=== PATIENT | female | born 1950 | race Caucasian/White ===

== ENCOUNTER → 2021-05-23 14:55 | Outpatient (BNVA) | payer OTHER, SELFPAY | PROVIDERS: PCP Physician Assistant; Visit Provider Internal Medicine ==

== ENCOUNTER → 2021-07-04 13:05 | Outpatient (BNVA) | payer OTHER, SELFPAY | PROVIDERS: PCP Physician Assistant; Visit Provider Internal Medicine ==

== ENCOUNTER 2021-08-09 14:56 | Outpatient (REF) | payer OTHER, SELFPAY ==
[2021-08-10 14:48] LABS: H Pylori Breath Test Positive (Negative)
== END 2021-08-09 14:57 | disposition home or self-care (01) ==
LOC: HO.LAB 14:56
PROVIDERS: Visit Provider Internal Medicine
DX: K29.70 Gastritis, unspecified, without bleeding (principal); B96.81 Helicobacter pylori [H. pylori] as the cause of diseases classified elsewhere; R19.7 Diarrhea, unspecified
CPT/HCPCS: 36415; 83013

== ENCOUNTER 2021-11-20 11:03 | Outpatient (REF) | payer MEDICARE, SELFPAY ==
--- NOTE | ~2021-11-20 | XR_ITS ---
EXAMINATION: XR KNEE, RIGHT CLINICAL INFORMATION: Right knee pain COMPARISON: None TECHNIQUE: Four views of the right knee. FINDINGS: No fracture, dislocation, destructive process, or suprapatellar effusion. Hoffa's fat pad appears normal. There are mild tricompartment osteoarthritis with mild narrowing medial knee joint compartment and spurring from the femoral condyles, patella, and tibial plateau. No erosive change. There is some faint fine chondrocalcinosis medial meniscus. Axial view patella shows no lateralization or tilting. There is spurring at the quadriceps insertion patella and origin patellar tendon. There is spurring at the proximal medial femoral condyle which may related to remote injury proximal medial collateral ligament. XR/XR knee RT 4V IMPRESSION: -Mild tricompartment osteoarthritis. No effusion. -Spurring quadriceps insertion patella and origin patellar tendon. -Mild spurring proximal medial femoral condyle, possibly related to remote proximal MCL injury.
--- NOTE | ~2021-11-20 | XR_ITS ---
EXAMINATION: XR HIP, RIGHT CLINICAL INFORMATION: Right hip pain COMPARISON: None TECHNIQUE: Two views of the right hip. FINDINGS: There is borderline narrowing superior medial hip joint. No subchondral sclerosis or erosive change or chondrocalcinosis. No fracture or dislocation or destructive process. There are degenerative changes lower lumbar spine with vertebral spurring L4 and L5. Mild osteitis pubis present. There is mild whiskering from the lateral right ilium and mild spurring from the caudal aspect right hip greater trochanter. XR/XR hip RT min 2V IMPRESSION: -Borderline narrowing superior medial hip joint. No erosive change. -Mild spurring caudal aspect greater trochanter. -Degenerative changes lower lumbar spine. -Mild osteitis pubis.
== END 2021-11-20 11:04 | disposition home or self-care (01) ==
LOC: HO.XRAY 11:03
PROVIDERS: PCP Internal Medicine; Visit Provider Nurse Practitioner Family
DX: M25.551 Pain in right hip (principal); M25.561 Pain in right knee; G89.29 Other chronic pain; Z98.890 Other specified postprocedural states
CPT/HCPCS: 73502; 73564

== ENCOUNTER 2022-06-20 06:22 | Outpatient (REF) | payer MEDICARE, SELFPAY ==
--- NOTE | ~2022-06-20 | XR_ITS ---
EXAMINATION: XR SHOULDER, LEFT CLINICAL INFORMATION: Pain left shoulder COMPARISON: None TECHNIQUE: AP external rotation, Grashey, scapular Y, and axillary views of the left shoulder. FINDINGS: There is loss of glenohumeral and AC joint space with periarticular spurring. There is no visible acute fracture, dislocation or subluxation seen. There is diffuse osteopenia with several lucencies seen in the proximal humerus.. XR/XR shoulder LT min 2V IMPRESSION: Degenerative arthritic changes left shoulder joint. No visible acute fracture or dislocation seen. There is mild osteopenia with several lucencies seen in the proximal humerus.
== END 2022-06-20 06:23 ==
LOC: HO.HOSX 06:22
PROVIDERS: Visit Provider Physician Assistant
DX: M75.32 Calcific tendinitis of left shoulder (principal); M19.012 Primary osteoarthritis, left shoulder
CPT/HCPCS: 20610; 73030; 99202; J1020

== ENCOUNTER 2023-02-14 11:05 | Outpatient (REF) | payer OTHER, MEDICAID, SELFPAY ==
[2023-02-14 14:20] LABS: Estimated Average Glucose 140 mg/dL; Hemoglobin A1c % 6.5 %
[2023-02-14 14:34] LABS: Alanine Aminotransferase 43 U/L (0-31); Albumin Level 4.2 g/dL (3.5-5.0); Alkaline Phosphatase 96 U/L (39-117); Anion Gap 14 (12-20); Aspartate Amino Transferase 37 U/L (5-31); Bilirubin Total 0.2 mg/dL (0.0-1.0); Blood Urea Nitrogen 17 mg/dL (9-16); Calcium 10.1 mg/dL (8.4-10.2); Carbon Dioxide 26 mmol/L (22-29); Chloride 104 mmol/L (96-108); Estimated Glomerular Filt Rate > 60; Glucose Random 141 mg/dL (60-115); Potassium 4.7 mmol/L (3.3-5.1); Sodium 139 mmol/L (135-145); Total Protein 7.8 g/dL (6.5-8.0)
== END 2023-02-14 11:06 | disposition home or self-care (01) ==
LOC: HO.HHCL 11:05
PROVIDERS: Visit Provider Registered Nurse
DX: E11.9 Type 2 diabetes mellitus without complications (principal)
CPT/HCPCS: 36415; 80053; 83036

== ENCOUNTER 2023-02-14 12:45 | Emergency (ER) | payer OTHER, SELFPAY ==
--- NOTE | ~2023-02-14 | XR_ITS ---
EXAMINATION: XR CHEST CLINICAL INFORMATION: Chest pain. COMPARISON: None available. TECHNIQUE: 2 views of the chest were obtained. FINDINGS: No significant abnormality is noted involving the heart, lungs, mediastinum, bony thorax or soft tissues. Degenerative changes of the left shoulder. XR/XR chest 2V IMPRESSION: Unremarkable examination.
--- NOTE | 2023-02-14 12:47 | ECG_ITS ---
Test Reason : chest pain Blood Pressure : / mmHG Vent. Rate : 072 BPM Atrial Rate : 072 BPM P-R Int : 176 ms QRS Dur : 072 ms QT Int : 374 ms P-R-T Axes : 048 -05 045 degrees QTc Int : 409 ms Normal sinus rhythm Minimal voltage criteria for LVH, may be normal variant ( R in aVL ) Borderline ECG No previous ECGs available Referred By: Generic ED Physician Electronically Signed By:Oliver Benton
[2023-02-14 13:03] LABS: MANUAL DIFF FLAG NO
[2023-02-14 13:04] VITALS: BP 157/79; PULSE 80; RESP 18; TEMP 36.1; O2SAT 97; BMI 31.5
--- NOTE | 2023-02-14 13:05 | ED.GENADULT ---
HPI - General Adult General Chief complaint: Chest Pain Stated complaint: chest pain Time Seen by Provider: 02/14/23 13:59 Source: patient and anesthesia resident Mode of arrival: ambulatory Limitations: language barrier History of Present Illness HPI narrative: Patient is a 72 year old assigned female at with a history of asthma presenting to the emergency department today with right sided chest wall pain. Patient states that since yesterday morning she began to have right sided chest wall pain. Patient states that movement makes it worse. Patient denies any dizziness, lightheadedness, abdominal pain, nausea, vomiting, fever, chills, blurry vision, double vision, loss of vision, difficulty breathing, shortness of breath, back pain, night sweats, pain with urination, increased urinary frequency, increased urinary urgency, blood in her urine or stool, syncope or a near syncopal episode, recent trauma or falls, bowel incontinence, bladder incontinence, bowel retention, bladder retention, or any other complaints at this time. Onset (ago): day(s) Location: chest and right Severity: mild Severity scale (1-10): 3 Quality: aching and dull Pain Consistency: constant Relieving factors: none Exacerbating factors: none Associated symptoms: denies other symptoms Treatments prior to arrival: none Related Data Home Medications Medication Instructions Recorded Confirmed ascorbate calcium (vitamin C) 500 500 mg PO DAILY 05/23/21 mg tablet cholecalciferol (vitamin D3) 50 50 mcg PO DAILY 05/23/21 mcg (2,000 unit) capsule metformin 1,000 mg tablet 1,000 mg PO BID 05/23/21 simvastatin 40 mg tablet 40 mg PO DAILY 05/23/21 omeprazole 20 mg capsule,delayed 20 mg PO DAILY 07/04/21 release Allergies Allergy/AdvReac Type Severity Reaction Status Date / Time dimenhydrinate Allergy Severe Anaphylaxis Verified 02/14/23 13:03 [From Dramamine] aloe vera Allergy Intermediate Itching Verified 02/14/23 13:03 sulfamethoxazole Allergy Intermediate Rash Verified 02/14/23 13:03 [From Septra] trimethoprim [From ] Allergy Intermediate Rash Verified 02/14/23 13:03 Review of Systems Constitutional: Constitutional: Reports no additional constitutional complaints, Denies chills, Denies fever(s) and Denies night sweats Eyes: Eyes: Reports no additional eye complaints, Denies blurry vision, Denies change in vision, Denies diplopia, Denies eye discharge, Denies loss of vision and Denies eye pain ENT: Denies dizziness Cardiovascular: Cardiovascular: Reports no additional cardiovascular complaints, Reports chest pain, Denies lightheadedness, Denies Loss of Consciousness and Denies dyspnea Respiratory: Respiratory: Reports no additional respiratory complaints and Denies dyspnea Gastrointestinal: Gastrointestinal: Reports no additional gastrointestinal complaints, Denies abdominal pain, Denies melena, Denies hematochezia, Denies change in bowel habits and Denies change in stool character Genitourinary: Genitourinary: Denies hematuria, Denies urinary frequency, Denies dysuria, Denies urinary incontinence, Denies urinary hesitancy and Denies urinary urgency Musculoskeletal: Musculoskeletal: Reports no additional musculoskeletal complaints, Denies numbness and Denies tingling Neurologic: Denies dizziness, Denies loss of vision, Denies numbness and Denies tingling Psychiatric: Psychiatric: Reports no additional psychiatric complaints Endocrine: Endocrine: Reports no additional endocrine complaints Hematologic/Lymphatic: Hematologic/Lymphatic: Reports no additional hematologic/lymphatic complaints Allergic/Immunologic: Allergic/Immunologic: Reports no additional allergic/immunologic complaints [facility] Past Medical History Attestation statement: The following information was validated with the patient. Source: old records reviewed and nursing notes reviewed Medical History Asthma Diabetes Diarrhea Helicobacter positive gastritis Osteoporosis Surgical History H/O shoulder surgery Hx of appendectomy Hx of section Hx of cholecystectomy Hx of tubal ligation Family History Family History Mother Diabetes HTN (hypertension) Hypothyroidism Father Lung cancer Brother Diabetes Sister Diabetes Social History Social History Household Members: None Housing: Apartment Alcohol intake: never Patient Tobacco Use Status: Never used Tobacco Smoked in Last 30 Days: No Use of substances other than those prescribed or required for medical reasons: No Advance Directives: No Physical Exam ED Vital Signs: Vital Signs - 24 hr 02/14/23 13:04 02/14/23 14:10 Temperature 97 F 97.7 F Pulse Rate 80 70 Respiratory Rate 18 18 Blood Pressure 157/79 H 132/64 Pulse Oximetry 97 99 Oxygen Delivery Method Room Air Room Air BMI result Body Mass Index 31.5 Const General: cooperative, no acute distress, alert and awake Nutritional Appearance: well nourished Orientation/consciousness: patient oriented x3 Limitations: no limitations HENMT Head: Yes normal to inspection and Yes atraumatic Ears: hearing grossly normal bilaterally and external ears normal General nose exam: Normal external nose present, no nasal discharge noted and no epistaxis Face and sinus: Yes normal facial exam, No abrasion and No laceration Mouth: Normal oral and palatal mucosa present, no drooling and no muffled voice Eyes General: appearance normal, both eyes and all related structures Periorbital: periorbital findings normal Eyelids: Yes eyelids normal Conjunctivae: conjunctivae normal Pupils: Equal, round and reactive pupils present EOM: EOMs intact bilaterally Neck Neck: Yes normal visual inspection, Yes full ROM and Yes no lymphadenopathy Chest Chest palpation & inspection: normal inspection of the chest Resp Effort & Inspection: normal respiratory effort and able to speak in complete sentences Auscultation: clear to auscultation bilaterally Cardio Rate: regular rate Rhythm: regular rhythm GI Inspection: Yes normal to inspection Neuro General: patient oriented x3 and moves all extremities Cranial nerves: Yes Equal, round and reactive pupils present Cognition (Neuro): normal cognition Motor exam (neuro): 5/5 motor strength present throughout Sensory Exam: Normal double simultaneous stimulation for sensation Coordination: [id number] test normal Extrem General: Yes normal to inspection, Yes full ROM and Yes capillary refill normal Psych Appearance: grossly normal Mental Status: mental status grossly normal Affect: normal affect Attitude: cooperative Thought process: Normal thought process present Thought content: Normal thought content present Insight: Good insight present (Psych) Course Course Course Narrative: This is an RME: Additional HPI, ROS, PE not included below will be deferred to primary provider. This is a 72 [id number], with a hx of diabetes, osteoporosis, and arthritis, presenting to the emergency department with a complaint of constant chest pain since yesterday. Patient reports pain worsens with inspiration. Medications Administered Discontinued Medications Generic Name Dose Route Start Last Admin Trade Name Freq PRN Reason Stop Dose Admin Ketorolac Tromethamine 15 mg 02/14/23 14:29 02/14/23 14:43 Ketorolac Tromethamine 15 Mg/Ml Vial IM 02/14/23 14:30 15 mg ONCE ONE Administration Medical Decision Making Medical Decision Making [facility] Narrative: Patient is a 72 year old assigned female at with a history of asthma presenting to the emergency department today with right sided chest pain. Patient's physical exam was unremarkable. Patient's blood work was unremarkable. Patient's EKG was unremarkable. Patient's chest x-ray showed no acute process. I explained my physical exam findings as well as all test results to the patient. I answered all questions asked by the patient. Patient received IM Toradol which she stated helped her symptoms significantly. I stressed the importance of the patient taking her medication as prescribed. I stressed the importance of the patient following up with her primary care provider. I stressed the importance of the patient returning to the emergency department immediately if her symptoms were to worsen or if she were to develop any dizziness, shortness of breath, difficulty breathing, chest pain, blurry vision, loss of vision, nausea, vomiting, abdominal pain, fever, chills, back pain, or any other complaints. Patient verbalized agreement and understanding with this treatment plan and discharge. Differential Diagnosis Differential Diagnoses: The differential diagnosis associated with the presentation includes Asthma Chest pain Chest wall pain Diabetes NSTEMI STEMI Admission/Observation Consideration of admission/observation: Escalation of care including admission/observation considered Patient would have been admitted to the hospital had her work up had any findings where hospital admission was appropriate and her clinical presentation warranted hospital admission. Lab Data [facility] Lab Attestation statement: I reviewed the patient's lab results. My interpretation of these studies and their corresponding values is that they are grossly normal. 02/14/23 12:58 02/14/23 12:58 Labs: Lab Results 02/14/23 02/14/23 02/14/23 Range/Units 12:58 12:58 12:58 WBC 9.7 (4.8-10.8) X10*3/uL RBC 4.82 (4.20-5.50) X10*6/uL Hgb 13.6 (12.0-16.0) g/dl Hct 43.3 (37.0-47.0) % MCV 89.8 (80.0-98.0) fL MCH 28.2 (27.0-33.0) pg MCHC 31.4 (31.0-35.0) g/dl RDW 13.2 (11.0-16.0) % Plt Count 353 (160-400) X10*3/uL MPV 9.9 (9.4-12.3) fL Immature Gran % (Auto) 0.2 (0.0-0.4) % Neut % (Auto) 60.4 (45-73) % Lymph % (Auto) 30.3 (20-40) % [place] % (Auto) 8.0 (2-11) % Eos % (Auto) 0.7 (0-4) % Baso % (Auto) 0.4 (0-2) % Lymph # (Auto) 2.9 (1.2-4.9) X10*3/uL [place] # (Auto) 0.8 (0.1-1.2) X10*3/uL Eos # (Auto) 0.1 (0.0-0.4) X10*3/uL Baso # (Auto) 0.0 (0.0-0.2) X10*3/uL Abs Immat Gran (auto) 0.02 (0.00-0.03) X10*3/uL Absolute Neuts (auto) 5.9 (2.0-8.3) x10*3/uL Absolute Nucleated RBC 0.000 (0.0-0.012) X10*3/uL Nucleated RBC % (auto) 0.0 (0.0-0.2) /100WBC Sodium 138 (135-145) mmol/L Potassium 4.3 (3.3-5.1) mmol/L Chloride 106 (96-108) mmol/L Carbon Dioxide 25 (22-29) mmol/L Anion Gap 11 L (12-20) BUN 16 (9-16) mg/dL Creatinine 0.79 (0.5-1.4) mg/dL Estim Creat Clear Calc 59.0 Estimated GFR > 60 Random Glucose 116 H (60-115) mg/dL Calcium 10.1 (8.4-10.2) mg/dL Troponin I High Sens < 2.7 (<3.5-17.0) ng/L Independent Interpretation I performed an independent interpretation of an: EKG and Plain X-Ray Interpretation: My interpretation is in agreement with the radiologist's impression of this imaging study. EXAMINATION: XR CHEST CLINICAL INFORMATION: Chest pain. COMPARISON: None available. TECHNIQUE: 2 views of the chest were obtained. FINDINGS: No significant abnormality is noted involving the heart, lungs, mediastinum, bony thorax or soft tissues. Degenerative changes of the left shoulder. XR/XR chest 2V IMPRESSION: Unremarkable examination. Dictated By: Wicho Vazquez Signed By: Electronically signed by Wicho?George 02/14/23 1400 Vent. Rate: 072 BPM ? ? Atrial Rate: 072 BPM P-R Int: 176 ms? QRS Dur: 072 ms QT Int: 374 ms ? ? ? P-R-T Axes: 048 -05 045 degrees QTc Int: 409 ms ? Normal sinus rhythm Minimal voltage criteria for LVH, may be normal variant (R in aVL) Borderline ECG No previous ECGs available DD/ [id number] Radiology Impression Discussion of test interpretation with radiology: I have reviewed the radiologist's reading. Chronic Conditions Patient?s care impacted by: Diabetes Scores Heart Score History: -0- slightly suspicious ECG: -0- normal Age: -2- > or = 65 Risk factory: -1- 1 or 2 risk factors Troponin: -0- < or = normal limit Score: 3 Risk: 1.7% Discharge Plan Discharge Clinical Impression: Chest wall pain Patient Disposition: Home, Self-Care Instructions: Chest Wall Pain (ED) Additional Instructions: Follow up with your primary care provider. Return to the emergency department immediately if your symptoms worsen or if you develop any dizziness, shortness of breath, difficulty breathing, chest pain, blurry vision, loss of vision, nausea, vomiting, abdominal pain, fever, chills, back pain, or any other complaints. Clemencia un seguimiento con peacock proveedor de atenci?n primaria. Regrese al departamento de emergencias de inmediato si raz s?ntomas empeoran o si presenta mareos, dificultad para respirar, dolor en el pecho, visi?n borrosa, p?rdida de la visi?n, n?useas, v?mitos, dolor abdominal, fiebre, escalofr?os, dolor de espalda o cualquier otra molestia. Prescriptions: No Action metformin 1,000 mg tablet 1,000 mg PO BID simvastatin 40 mg tablet 40 mg PO DAILY cholecalciferol (vitamin D3) 50 mcg (2,000 unit) capsule 50 mcg PO DAILY ascorbate calcium (vitamin C) 500 mg tablet 500 mg PO DAILY omeprazole 20 mg capsule,delayed release(DR/EC) 20 mg PO DAILY Referrals: Camden Brown MD [Primary Care Provider] - Interventions: ED Discharge Assessment Last Done: 02/14/23 14:47 Discharge Date/Time: 02/14/23 14:50 Print Language: Jordanian
[2023-02-14 13:15] LABS: Basophils Percent Auto 0.4 % (0-2); Eosinophils Absolute Auto 0.1 X10*3/uL (0.0-0.4); Eosinophils Percent Auto 0.7 % (0-4); Hematocrit 43.3 % (37.0-47.0); Hemoglobin 13.6 g/dl (12.0-16.0); Imm Gran Abs Auto 0.02 X10*3/uL (0.00-0.03); Imm Gran Pct Auto 0.2 % (0.0-0.4); Lymphocytes Absolute Auto 2.9 X10*3/uL (1.2-4.9); Lymphocytes Percent Auto 30.3 % (20-40); Mean Corpuscular HGB Conc 31.4 g/dl (31.0-35.0); Mean Corpuscular Hemoglobin 28.2 pg (27.0-33.0); Mean Corpuscular Volume 89.8 fL (80.0-98.0); Mean Platelet Volume 9.9 fL (9.4-12.3); Monocytes Absolute Auto 0.8 X10*3/uL (0.1-1.2); Neutrophils Absolute Auto 5.9 x10*3/uL (2.0-8.3); Neutrophils Percent Auto 60.4 % (45-73); Platelet Count 353 X10*3/uL (160-400); Red Blood Count 4.82 X10*6/uL (4.20-5.50); Red Cell Distribution Width 13.2 % (11.0-16.0); White Blood Count 9.7 X10*3/uL (4.8-10.8)
[2023-02-14 13:43] LABS: Anion Gap 11 (12-20); Blood Urea Nitrogen 16 mg/dL (9-16); Calcium 10.1 mg/dL (8.4-10.2); Carbon Dioxide 25 mmol/L (22-29); Chloride 106 mmol/L (96-108); Estimated Glomerular Filt Rate > 60; Glucose Random 116 mg/dL (60-115); Potassium 4.3 mmol/L (3.3-5.1); Sodium 138 mmol/L (135-145)
[2023-02-14 14:02] LABS: Troponin-I High Sensitivity < 2.7 ng/L (<3.5-17.0)
[2023-02-14 14:10] VITALS: BP 132/64; PULSE 69; PULSE 70; RESP 18; TEMP 36.5; O2SAT 99
--- NOTE | 2023-02-14 14:20 | PC.NURSE ---
Alert and oriented, mostly tajik speaking, information obtained via certified court/medical interpreter. Patient states that yesterday morning she started with right sided chest pain that has progressively gotten worse. denies htn, cardiac issues, left sided chest pain,. States has a slight headache. States pain gets worse when going from sitting to standing. Denies n/v/d
[2023-02-14] MEDS: Ketorolac Tromethamine 15 MG/ML VIAL IM (14:43)
--- NOTE | 2023-02-14 14:46 | PC.NURSE ---
IM pain medication given per order, discharge instruction reviewed with patient via skilled nursing case manager, patient verbalized understanding
== END 2023-02-14 14:50 | disposition home or self-care (01) ==
PROVIDERS: Emergency Provider Emergency Medicine; PCP Internal Medicine
DX: R07.89 Other chest pain (principal); E11.9 Type 2 diabetes mellitus without complications; Z79.84 Long term (current) use of oral hypoglycemic drugs; Z79.899 Other long term (current) drug therapy
CPT/HCPCS: 36415; 71046; 80048; 84484; 85025; 93005; 96372; 99284; 99285; J1885

== ENCOUNTER → 2023-02-14 12:47 | Outpatient (BNV) | payer OTHER, SELFPAY | PROVIDERS: Emergency Provider Emergency Medicine; PCP Internal Medicine; Visit Provider Internal Medicine Cardiovascular Disease | DX: R07.9 Chest pain, unspecified (principal) | CPT/HCPCS: 93010 ==

== ENCOUNTER 2023-03-01 16:19 | Outpatient (REF) | payer OTHER, SELFPAY ==
[2023-03-01 18:34] LABS: TSH reflex Free T4 1.03 uIU/mL (0.32-4.0)
== END 2023-03-01 16:20 | disposition home or self-care (01) ==
LOC: HO.HHCL 16:19
PROVIDERS: Visit Provider Nurse Practitioner Primary Care
DX: M25.50 Pain in unspecified joint (principal); R68.89 Other general symptoms and signs
CPT/HCPCS: 36415; 84443

== ENCOUNTER 2023-09-02 08:11 | Outpatient (REF) | payer OTHER, SELFPAY ==
[2023-09-02 11:41] LABS: Hematocrit 41.6 % (37.0-47.0); Hemoglobin 13.6 g/dl (12.0-16.0)
[2023-09-02 12:06] LABS: Microalbum/Creatinine Ratio Ur 10.7 ug/mg cr (<30)
[2023-09-02 12:25] LABS: Alanine Aminotransferase 30 U/L (0-31); Albumin Level 3.9 g/dL (3.5-5.0); Alkaline Phosphatase 87 U/L (39-117); Anion Gap 13 (12-20); Aspartate Amino Transferase 27 U/L (5-31); Bilirubin Total 0.2 mg/dL (0.0-1.0); Blood Urea Nitrogen 18 mg/dL (9-16); Calcium 9.4 mg/dL (8.4-10.2); Carbon Dioxide 24 mmol/L (22-29); Chloride 107 mmol/L (96-108); Cholesterol 160 mg/dL (<200); Estimated Glomerular Filt Rate > 60; Glucose Random 121 mg/dL (60-115); HDL Cholesterol 45 mg/dL (>40); LDL Cholesterol Calculated 84 mg/dL (<100); Potassium 4.4 mmol/L (3.3-5.1); Sodium 140 mmol/L (135-145); Total Protein 7.4 g/dL (6.5-8.0); Triglycerides 155 mg/dL (<150)
== END 2023-09-02 08:12 | disposition home or self-care (01) ==
LOC: HO.HHCL 08:11
PROVIDERS: Visit Provider Nurse Practitioner Primary Care
DX: E11.69 Type 2 diabetes mellitus with other specified complication (principal); E78.5 Hyperlipidemia, unspecified; R42 Dizziness and giddiness
CPT/HCPCS: 36415; 80053; 80061; 82043; 82570; 85014; 85018